=== PATIENT | male | born 1955 | race Hispanic/Latino ===

== ENCOUNTER 2017-03-18 07:18 | Inpatient (IN) | payer OTHER ==
[~2017-03-18] VITALS: Ht 160 cm; Wt 90.7 kg
[2017-03-18 07:41] LABS: BASOPHILS % (AUTO) 0.8 % (0.0-5.0); EOSINOPHILS % (AUTO) 2.4 % (0.0-8.0); HEMATOCRIT 37.4 % (42-54); MEAN CORPUSCULAR HEMOGLOBIN 31.4 pg (27.0-33.0); MEAN CORPUSCULAR HGB CONC 34.9 g/dL (32.0-36.0); MEAN CORPUSCULAR VOLUME 90.1 fL (79-99); MONOCYTES % (AUTO) 8.7 % (3.0-13.0); NEUTROPHILS % (AUTO) 67.1 % (40.0-77.0); PLATELET COUNT (AUTO) 278 K/uL (130-400); RED BLOOD CELL COUNT(AUTO) 4.16 MIL/uL (4.50-6.20)
[2017-03-18] MEDS ORDERED: SODIUM CHLORIDE 0.9% 1000ML 1,000 ML IV ONE ×2 (07:43→09:10)
[2017-03-18] MEDS ORDERED: PROMETHAZINE HCL 25 MG/ML 1ML AMPULE IM ONE (07:43)
[2017-03-18 07:57] LABS: CREATININE 0.9 mg/dL (0.5-1.5); POTASSIUM 3.5 mmol/L (3.5-5.1)
[2017-03-18 07:58] LABS: INR 0.93 (0.85-1.15); PARTIAL THROMBOPLASTIN TIME 23.5 SEC (26.3-35.5); PROTHROMBIN TIME 9.8 SEC (9.6-11.6)
[2017-03-18 08:22] LABS: ALBUMIN 3.9 g/dL (3.5-5.0); BILIRUBIN,TOTAL 0.5 mg/dL (0.2-1.0); CREATINE KINASE MB 0.8 ng/mL (0.5-3.6); TOTAL PROTEIN, SERUM 7.5 g/dL (6.0-8.3)
[2017-03-18] MEDS ORDERED: MECLIZINE HCL 25 MG TABLET ONE (09:10)
[2017-03-18] MEDS ORDERED: GADOBENATE DIMEGLUMINE 20 ML IV ONE (13:52)
[2017-03-18] MEDS ORDERED: DEXAMETHASONE SOD PHOSPHATE 10MG/ML 1ML VIAL ONE (16:46)
[2017-03-18] MEDS ORDERED: ACETAMINOPHEN 325 MG TAB PO PRN ×2 (17:00)
[2017-03-18] MEDS ORDERED: ONDANSETRON HCL 4 MG/2 ML VIAL IV PRN (17:00)
[2017-03-18] MEDS ORDERED: MAG HYDROX/AL HYDROX/SIMETH ES 30 ML SUSP UDCUP PO PRN (17:00)
[2017-03-18] MEDS ORDERED: LACTULOSE 20 GM/30 ML UDCUP PO PRN (17:00)
[2017-03-18] MEDS ORDERED: METHYLPREDNISOLONE SOD SUCC 125MG/2ML VIAL IVP SCH (17:00)
[2017-03-18] MEDS ORDERED: GUAIFENESIN-DM 200/20 MG 10 ML PO PRN (17:00)
[2017-03-18] MEDS ORDERED: MORPHINE SULFATE 2 MG/ML 1ML SYG IV PRN (17:00)
[2017-03-18] MEDS ORDERED: ACETAMINOPHEN-CODEINE 300/30MG TAB PO PRN (17:00)
[2017-03-18] MEDS ORDERED: HYDR25TA PO (18:34)
[2017-03-18] MEDS ORDERED: LISI-613 PO (18:34)
[2017-03-18] MEDS ORDERED: ASPI-555 PO (18:34)
[2017-03-18 18:56] VITALS: BP 141/71
[2017-03-18] MEDS ORDERED: FAMOTIDINE 20MG TAB 20 MG TAB PO ONE (21:00)
[2017-03-18] MEDS: SODIUM CHLORIDE 0.9% 1000ML 1,000 ML IV SCH (21:34)
[2017-03-18] MEDS: DEXAMETHASONE SOD PHOSPHATE 4 MG/ML 1ML VIAL IVP SCH (23:46)
[2017-03-18 23:47] VITALS: BP 133/68
[2017-03-19] VITALS (20 sets, daily range): BP systolic 116–158; BP diastolic 53–91
[2017-03-19] MEDS: SODIUM CHLORIDE 0.9% 1000ML 1,000 ML IV SCH (02:51)
[2017-03-19] MEDS: DEXAMETHASONE SOD PHOSPHATE 4 MG/ML 1ML VIAL IVP SCH ×4 (04:56→23:30)
[2017-03-19] MEDS ORDERED: LACTATED RINGERS 1000ML 1,000 ML IV ONE (07:54)
[2017-03-19] MEDS ORDERED: WATER FOR INJECTION,STERILE 20 ML VIAL IJ ONE ×2 (08:00→16:00)
[2017-03-19] MEDS ORDERED: CEFAZOLIN SODIUM 1 GM VIAL IVP ONE ×2 (08:00→16:00)
[2017-03-19] MEDS ORDERED: BUPIVACAINE/PF 0.25% 30ML VIAL IJ ONE (08:10)
[2017-03-19] MEDS ORDERED: BACITRACIN 50,000 UNIT VIAL ONE (08:10)
[2017-03-19] MEDS ORDERED: EPINEPHRINE 1 MG/ML AMPULE ONE (08:10)
[2017-03-19] MEDS ORDERED: MICROFIBRILLAR COLLAGEN 1 GM PACKAGE TP ONE (08:10)
[2017-03-19] MEDS ORDERED: THROMBIN-JMI 20000 UNIT KIT TP ONE (08:11)
[2017-03-19] MEDS ORDERED: FENTANYL CITRATE PF 50 MCG/1 ML 5ML AMP IV ONE (09:00)
[2017-03-19] MEDS: PANTOPRAZOLE SODIUM 40 MG TABLET.DR PO SCH (09:00)
[2017-03-19] MEDS ORDERED: MIDAZOLAM HCL 1 MG/ML 2ML VIAL ONE (09:00)
[2017-03-19] MEDS ORDERED: ONDANSETRON HCL 4 MG/2 ML VIAL ONE (10:41)
[2017-03-19] MEDS ORDERED: GLYCOPYRROLATE 0.2 MG/ML 5 ML VIAL ONE (10:42)
[2017-03-19] MEDS ORDERED: NEOSTIGMINE METHYLSULFATE 1MG/ML IV ONE (10:42)
[2017-03-19] MEDS ORDERED: ROCURONIUM BROMIDE 10MG/1ML 5ML VL ONE (10:42)
[2017-03-19] MEDS ORDERED: DEXAMETHASONE SOD PHOSPHATE 10MG/ML 1ML VIAL ONE (10:42)
[2017-03-19] MEDS: LACTATED RINGERS 1000ML 1,000 ML IV SCH (12:10)
[2017-03-19] MEDS ORDERED: SODIUM CHLORIDE 0.9% 10 ML VIAL IVP PRN (12:15)
[2017-03-19] MEDS ORDERED: MORPHINE SULFATE 2 MG/ML 1ML SYG IVP PRN (12:15)
[2017-03-19] MEDS ORDERED: HYDROCODONE/ACETAMINOPHEN 5/325 MG TAB PO PRN (12:15)
[2017-03-19] MEDS ORDERED: PROMETHAZINE HCL 25 MG/ML 1ML AMPULE IM PRN (12:15)
[2017-03-19] MEDS ORDERED: CEFAZOLIN 2GM / 50 ML 50 ML IV SCH (12:15)
[2017-03-19] MEDS ORDERED: MEPERIDINE-PF 25 MG/ML SYG ONE (12:24)
[2017-03-19] MEDS ORDERED: CEFAZOLIN SODIUM 1 GM VIAL ONE (18:04)
[2017-03-19] MEDS ORDERED: WATER FOR INJECTION,STERILE 20 ML VIAL ONE (18:05)
[2017-03-19] MEDS: LISINOPRIL 20 MG TABLET PO SCH (21:06)
[2017-03-20] VITALS: BP 142/68
[2017-03-20] MEDS: LACTATED RINGERS 1000ML 1,000 ML IV SCH (01:12)
[2017-03-20 04:00] VITALS: BP 149/70
[2017-03-20] MEDS: DEXAMETHASONE SOD PHOSPHATE 4 MG/ML 1ML VIAL IVP SCH (05:33)
[2017-03-20 05:46] LABS: HEMATOCRIT 32.8 % (42-54); MEAN CORPUSCULAR HEMOGLOBIN 31.7 pg (27.0-33.0); MEAN CORPUSCULAR HGB CONC 34.7 g/dL (32.0-36.0); MEAN CORPUSCULAR VOLUME 91.2 fL (79-99); PLATELET COUNT (AUTO) 250 K/uL (130-400); RED CELL DISTRIBUTION WIDTH 14.8 % (11.0-15.5); WHITE BLOOD COUNT (AUTO) 17.8 K/uL (4.8-10.8)
[2017-03-20 05:54] LABS: CREATININE 0.9 mg/dL (0.5-1.5); POTASSIUM 3.9 mmol/L (3.5-5.1)
[2017-03-20 08:02] VITALS: BP 167/83
[2017-03-20] MEDS: PANTOPRAZOLE SODIUM 40 MG TABLET.DR PO SCH (08:57)
[2017-03-20] MEDS: LISINOPRIL 20 MG TABLET PO SCH (08:57)
[2017-03-20] MEDS ORDERED: ASPIRIN 81 MG EC TAB PO SCH (09:00)
[2017-03-20] MEDS ORDERED: HYDROCHLOROTHIAZIDE 25 MG TABLET PO SCH (09:00)
[2017-03-20 11:35] VITALS: BP 147/76
== END 2017-03-20 13:40 | disposition home or self-care (01) | DRG 472 ==
LOC: EDH 07:18 → OBSVTOIN 07:19 → EDHIP 07:19 → 4AH 18:15
PROVIDERS: ADMIT Family Medicine; ATTEND Family Medicine
PROC: 0RG20K0 Fusion of 2 or more Cervical Vertebral Joints with Nonautologous Tissue Substitute, Anterior Approach, Anterior Column, Open Approach (ICD-10-PCS; principal; 2017-03-19 08:45)
PROC: BR111ZZ Fluoroscopy of Cervical Disc(s) using Low Osmolar Contrast (ICD-10-PCS; 2017-03-19 08:45)
DX: M48.02 Spinal stenosis, cervical region (principal); I69.354 Hemiplegia and hemiparesis following cerebral infarction affecting left non-dominant side; M51.06 Intervertebral disc disorders with myelopathy, lumbar region; F10.10 Alcohol abuse, uncomplicated; I10 Essential (primary) hypertension; M25.78 Osteophyte, vertebrae; M48.061 Spinal stenosis, lumbar region without neurogenic claudication; M51.16 Intervertebral disc disorders with radiculopathy, lumbar region; Z82.3 Family history of stroke
CPT/HCPCS: 36415; 70450; 70553; 71045; 72020; 72156; 72157; 72158; 74018; 80048; 80053; 82550; 82553; 84484; 85025; 85027; 85610; 85730; 93005; A4344; A9577; J0171; J0690; J1100; J2175; J2250; J2405; J2550; J2710; J3010; J3490; J7030; J7120

== ENCOUNTER → 2017-04-22 | Outpatient (CLI) | payer OTHER ==
[~2017-04-22] MED LIST: ASPI-555 PO; HYDR25TA PO; LISI-613 PO
== END ==
LOC: OIH 10:27
PROVIDERS: ATTEND Neurological Surgery
DX: M47.892 Other spondylosis, cervical region (principal); M43.22 Fusion of spine, cervical region
CPT/HCPCS: 72040